=== PATIENT | male | born 1960 | race Hispanic/Latino ===

== ENCOUNTER 2018-06-04 09:48 | Emergency (ER) | payer OTHER ==
[2018-06-04 10:08] VITALS: BMI 27.9
[2018-06-04] MEDS ORDERED: Lidocaine 5% Patch TD STA (10:21)
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
[2018-06-04] MEDS ORDERED: Lidocaine 5% Patch TD ONE (10:38)
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
[2018-06-04] MEDS ORDERED: Oxycodone/Acetaminophen 5/325 mg Tab PO STA (12:32)
[2018-06-04] MEDS ORDERED: Oxycodone/Acetaminophen 5/325 mg Tab ONE (12:56)
[2018-06-04 13:03] VITALS: BP 136/88; PULSE 70; RESP 16; TEMP 98.3
[2018-06-04 13:10] VITALS: O2SAT 95
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
== END 2018-06-04 13:01 | disposition home or self-care (01) ==
LOC: C.ER 09:48
DX: S13.4XXA Sprain of ligaments of cervical spine, initial encounter (principal); V79.50XA Passenger on bus injured in collision with unspecified motor vehicles in traffic accident, initial encounter
CPT/HCPCS: 72100; 72125; 99284; J8540